=== PATIENT | male | born 1970 | race Caucasian/White ===

== ENCOUNTER 2023-03-19 08:03 | Outpatient (OUT) | payer OTHER, SELFPAY ==
[2023-03-19 08:43] LABS: Estimated Average Glucose 103 mg/dL; Glycohemoglobin A1C 5.2 % (4.5-6.2)
[2023-03-19 09:34] LABS: Free T4 0.95 ng/dL (0.76-1.46)
[2023-03-19 09:41] LABS: Free T3 2.46 pg/mL (2.18-3.98); Thyroid Stimulating Hormone 3.364 uIU/mL (0.358-3.740)
[2023-03-20 14:09] LABS: Thyroglobulin Antibody <1.0 IU/mL (0.0-0.9); Thyroid Peroxidase (TPO) Ab 12 IU/mL (0-34)
== END 2023-03-19 08:04 | disposition home or self-care (01) ==
LOC: LAB 08:10
PROVIDERS: PCP Family Medicine; Visit Provider Family Medicine
DX: R73.9 Hyperglycemia, unspecified (principal); R94.6 Abnormal results of thyroid function studies
CPT/HCPCS: 36415; 83036; 84439; 84443; 84481

== ENCOUNTER 2023-07-22 15:13 | Outpatient (REF) | payer OTHER, SELFPAY ==
[2023-07-22 15:38] LABS: Internal Control Within Normal Limits; Strep A Antigen Screen Negative
== END 2023-07-22 15:14 | disposition home or self-care (01) ==
LOC: LAB 15:13
PROVIDERS: PCP Family Medicine; Visit Provider Family Medicine
DX: J02.9 Acute pharyngitis, unspecified (principal)
CPT/HCPCS: 87070; 87880

== ENCOUNTER 2024-01-06 07:09 | Outpatient (OUT) | payer OTHER, SELFPAY ==
--- OUTSIDE RECORDS SUMMARY | 2024-01-06 07:12 | XMS_ITS | CCD ---
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 Name Role Phone Adela Fulton Unavailable DONALDO, DR CHAPMAN Admitting Unavailable DONALDO, DR CHAPMAN Attending Unavailable DONALDO, DR CHAPMAN Primary Care Unavailable DONALDO, DR CHAPMAN Consulting Unavailable DONALDO, DR CHAPMAN Admitting Unavailable DONALDO, DR CHAPMAN Attending Unavailable DONALDO, DR CHAPMAN Primary Care Unavailable DONALDO, DR CHAPMAN Consulting Unavailable DONALDO, ADELA Tapia Referring Unavailable MELANIE PATEL Attending Unavailable Allergies Allergy Classification Reported Allergen(s) Allergy Type Date of Onset Reaction(s) Facility (8 sources) Amoxicillin / Clavulanate Drug Allergy rash/diarrhea [facility] Other (11 sources) Seasonal allergy Propensity to adverse reactions 4 Unknown, Unknown Reaction [facility] (2 sources) Amoxicillin / Clavulanate Drug Allergy rash/diarrhea [facility] Other (1 source) Amoxicillin Drug Allergy 4 rash/diarrhea [facility] (1 source) Clavulanate Drug Allergy 4 rash/diarrhea [facility] Medications Current Medications Medication Drug Class(es) Dates Sig (Normalized) Sig (Original) amLODIPine 5 mg oral tablet (11 sources) Dihydropyridine Calcium Channel Jose Alfredo Start: 09-27-2023 take 1 tablet by mouth once daily Amlodipine Active 1 TAB PO Daily September 27, 2023 12:00am [employer] tablet Orally Once a day; Note: Source Status: Taking; Refills: 3; Qty: 90 Tablet; Provider: Max Sanchez Start: 12-19-2020 take 1 tablet by jose th every twenty-four hours Norvasc 5 MG 1 tablet Orally Once a day for 30 day(s) December, Active losartan potassium 25 mg oral tablet (11 sources) Angiotensin 2 Receptor Jose Alfredo Start: 09-27-2023 take 1 tablet by mouth once daily Losartan Active 1 TAB PO Daily September 27, 2023 12:00am [employer] tablet Orally Once a day; Note: Source Status: Taking; Refills: 3; Qty: 90 Tablet; Provider: Donaldo Tapia Start: 03-20-2021 take 1 tablet by jose th every twenty-four hours Losartan Potassium 25 MG 1 tablet Orally Once a day for 90 days Mar, Active Multivitamin Gummies Adult - (10 sources) Multivitamin Gum mies Adult - Orally Active Multivitamin preparation (1 source) Start: 09-27-2023 take 1 tablet by mouth once daily Multivitamin Active 1 TAB PO Daily September 27, 2023 12:00am Completed/Discontinued Medications Medication Drug Class(es) Dates Sig (Normalized) Sig (Original) azithromycin 250 mg oral tablet (3 sources) Macrolide Antimicrobial Start: 07-23-2023 Azithromycin 250 MG 2 tablets on day 1 Orally then take 1 tablet daily on days 2-5 for 5 days Jul, Not-Taking/PRN Problems Active Problems Problem Classification Problem Date Documented Da te Episodic/Chronic Disorders of lipid metabolism (10 sources) Hyperlipidemia; Translations: [Hyperlipidemia, unspecified] Chronic Esophageal disorders (10 sources) Acid reflux; Translations: [Gastro-esophageal reflux disease without esophagitis] Chronic Genitourinary symptoms and ill-defined conditions (10 sources) Nocturia; Translations: [Nocturia] Episodic Immunizations and screening for infectious disease (1 source) Contact with and (suspected) exposure to other viral communicable diseases; Translations: [Contact with or exposure to other viral diseases] 09-27-2023 Episodic Other non-traumatic joint disorders (10 sources) Shoulder joint pain; Translations: [Pain in right shoulder] Episodic Other screening for suspected conditions (not mental disorders or infectious disease) (10 sources) Raised prostate specific antigen; Translations: [Elevated prostate specific antigen [PSA]] Episodic Other upper respiratory infections (3 sources) Recurrent sinusitis; Translations: [Chronic sinusitis, unspecified] Chronic Other upper respiratory infections (2 sources) Acute pharyngitis, unspecified; Translations: [Sore throat symptom] Episodic Past or Other Problems Problem Classification Problem Date Documented Da te Episodic/Chronic Other aftercare (1 source) 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 watermaster (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 therapy Onset: 12-24-2021 Resolved: 12-24-2021 Episodic Other circulatory disease (2 sources) Elevated blood-pressure reading, without diagnosis of hypertension Onset: 12-24-2021 Resolved: 04-03-2022 Episodic Unclassified (1 source) Lumbar pain M54.50 Onset: 12-24-2021 Resolved: 12-24-2021 Viral infection (1 source) COVID-19 Results Test Name Value Interpretation Reference Range Facility No Panel InformationOrdered By: Iliana Galo on 09-27-2023 COVID/Influenza Antigen (POC) [facility] Quick Strep (POC) [facility] CT SINUS WOon 08-21-2023 CT SINUS WO EXAM: CT SINUS WO DATE: 08/21/2023 10:35 AM CLINICAL HISTORY: Chronis Sinusitis. COMPARISON: None available. TECHNIQUE: Multiple images axial images were obtained without contrast administration. 3-D sagittal and coronal reconstructions were performed. All CT scans at this facility use dose modulation, iterative reconstruction, and/or weight based dosing when appropriate to reduce radiation dose to as low as reasonably achievable. FINDINGS: The visualized intracranial portions are within normal limits. The orbits demonstrate no intra or extraconal lesions, the globes are intact. There is no fracture or subluxation. There are no lytic or sclerotic bone lesions. The frontal sinuses are well aerated. The ethmoid sinuses are within normal limits. The sphenoid sinuses are unremarkable. The maxillary sinuses are intact. The right ostiomeatal complex is unremarkable. There is narrowing of the left ostiomeatal complex. There is severe deviation the nasal septum towards the left. The soft tissues are within normal limits. IMPRESSION: The paranasal sinuses are aerated. There is severe deviation of the nasal septum towards the left. ELECTRONICALLY SIGNED BY: Pradip Mayorga MD Normal Not Available CBC AUTO DIFFon 12-21-2022 BASO # 0.1 103/ul Normal 0.0-0.1 [facility] Comment on above: Performed By: #### C BC #### [facility] [address] [address] [address] Nely Bernal Basophils/100 WBC (Bld) 1.1 % Normal 0.2-2.0 [facility] Comment on above: Performed By: #### C BC #### [facility] [address] [place] [address] Dr. Nely Bernal EO # 0.3 103/ul Normal 0.0-0.7 [facility] Comment on above: Performed By: #### C BC #### [facility] [address] [place] [address] Dr. Nely Bernal Eosinophils/100 WBC (Bld) 5.1 % Normal 0.9-7.0 [facility] Comment on above: Performed By: #### C BC #### [facility] [address] [place] [address] Dr. Nely Bernal Erythrocyte distribution width (RBC) [Ratio] 12.1 % Normal 11.0-15.0 [facility] Comment on above: Performed By: #### C BC #### [facility] [address] [place] [address] Dr. Nely Bernal Hematocrit (Bld) [Volume fraction] 45.9 % Normal 42.0-54.0 [facility] Comment on above: Performed By: #### C BC #### [facility] [address] [place] [address] Dr. Nely Bernal Hemoglobin (Bld) [Mass/Vol] 15.7 g/dL Normal 14.0-18.0 [facility] Comment on above: Performed By: #### C BC #### [facility] [address] [place] [address] Dr. Nely Bernal IG # 0.01 10e3/ul Normal 0.00-0.03 [facility] Comment on above: Performed By: #### C BC #### [facility] [address] [place] [address] Dr. Nely Bernal IG % 0.2 % Normal 0.0-0.5 [facility] Comment on above: Performed By: #### C BC #### [facility] [address] [place] [address] Dr. Nely Bernal LYMPH # 1.9 103/ul Normal 1.2-3.8 [facility] Comment on above: Performed By: #### C BC #### [facility] [address] [place] [address] Dr. Nely Bernal Lymphocytes/100 WBC (Bld) 30.6 % Normal 20.5-60.0 [facility] Comment on above: Performed By: #### C BC #### [facility] [address] [place] [address] Dr. Nely Bernal MANUAL DIFF REQ NO Normal [facility] Comment on above: Performed By: #### C BC #### [facility] [address] [place] [address] Dr. Nely Bernal MCH (RBC) [Entitic mass] 30.9 pg Normal 25.9-34.0 [facility] Comment on above: Performed By: #### C BC #### [facility] [address] [place] [address] Dr. Nely Bernal MCHC (RBC) [Mass/Vol] 34.2 g/dL Normal 29.9-35.2 [facility] Comment on above: Performed By: #### C BC #### [facility] [address] [place] [address] Dr. Nely Bernal MCV (RBC) [Entitic vol] 90.4 fL Normal 80.0-94.0 [facility] Comment on above: Performed By: #### C BC #### [facility] [address] [place] [address] Dr. Nely Bernal MONO # 0.6 103/ul Normal 0.3-0.8 [facility] Comment on above: Performed By: #### C BC #### [facility] [address] [place] [address] Dr. Nely Bernal Monocytes/100 WBC (Bld) 8.8 % Normal 1.7-12.0 [facility] Comment on above: Performed By: #### C BC #### [facility] [address] [place] [address] Dr. Nely Bernal NEUT # 3.4 103/ul Normal 1.4-6.5 [facility] Comment on above: Performed By: #### C BC #### [facility] [address] [address] [address] Nely Bernal Neutrophils/100 WBC (Bld) 54.2 % Normal 43.0-75.0 [facility] Comment on above: Performed By: #### C BC #### [facility] [address] [address] [address] Nely Bernal Platelet mean volume (Bld) [Entitic vol] 9.7 fL Normal 9.5-13.5 [facility] Comment on above: Performed By: #### C BC #### [facility] [address] [place] [address] Dr. Nely Bernal PLT 194 103/ul Normal 150-450 [facility] Comment on above: Performed By: #### C BC #### [facility] [address] [place] [address] Dr. Nely Bernal RBC 5.08 106/ul Normal 4.70-6.10 [facility] Comment on above: Performed By: #### C BC #### [facility] [address] [place] [address] Dr. Nely Bernal WBC 6.3 103/ul Normal 4.0-11.0 [facility] Comment on above: Performed By: #### C BC #### [facility] [address] [place] [address] Dr. Nely Bernal LIPID PROFILEon 12-21-2022 CHOL-HDL RATIO NORM SEE BELOW Normal [facility] Comment on above: Result Comment: 3.3 - 4.4 LOW RISK 4.4 - 7.1 AVERAGE RISK 7.1 - 11.0 MODERATE RISK >11.0 HIGH RISK Performed By: #### T JOSE ANGEL, LIPID, CMP #### [facility] [address] [place] [address] Dr. Nely Bernal Cholesterol [Mass/Vol] 107 mg/dL Normal <=200 [facility] Comment on above: Performed By: #### T SH, LIPID, CMP #### [facility] [address] [place] [address] Dr. Nely Bernal Cholesterol in HDL [Mass/Vol] 36 mg/dL Critically low 40-60 [facility] Comment on above: Performed By: #### T SH, LIPID, CMP #### [facility] [address] [address] [address] Nely Bernal Cholesterol in LDL [Mass/Vol] 37.2 mg/dL Normal [facility] Comment on above: Performed By: #### T SH, LIPID, CMP #### [facility] [address] [address] [address] Nely Bernal Cholesterol.total/Carmel sterol in HDL [Mass ratio] 3.0 {ratio} Normal [facility] Comment on above: Performed By: #### T SH, LIPID, CMP #### [facility] [address] [place] [address] Dr. Nely Bernal HDL NORMAL > or = 60 mg/dl - LOW CARDIOVASCULAR RISK <40 mg/dl - HIGH CARDIOVASCULAR RISK Normal [facility] Comment on above: Performed By: #### T JOSE ANGEL, LIPID, CMP #### [facility] [address] [place] [address] Dr. Nely Bernal LDL CALC NORMAL SEE BELOW Normal [facility] Comment on above: Result Comment: <100 mg/dl OPTIMAL 100 - 129 mg/dl NEAR OR ABOVE OPTIMAL 130 - 159 mg/dl BORDERLINE HIGH 160 - 189 mg/dl HIGH >190 mg/dl VERY HIGH Performed By: #### T JOSE ANGEL, LIPID, CMP #### [facility] [address] [place] [address] Dr. Nely Bernal Triglyceride [Mass/Vol] 169 mg/dL Critically high <=[address] [facility] Comment on above: Performed By: #### T SH, LIPID, CMP #### [facility] [address] [place] [address] Dr. Nely Bernal VLDL CALC 33.8 mg/dL Normal [facility] Comment on above: Performed By: #### T SH, LIPID, CMP #### [facility] [address] [place] [address] Dr. Nely Bernal PROF 14(COMP METB)on 023 Albumin [Mass/Vol] 4.0 g/dL Normal 3.4-5.0 [facility] Comment on above: Performed By: #### L IPID, TSH, CMP #### [facility] [address] [place] [address] Dr. Nely Bernal Albumin/Globulin [Mass ratio] 1.0 {ratio} Normal [facility] Comment on above: Performed By: #### L IPID, TSH, CMP #### [facility] [address] [address] [address] Nely Bernal ALP [Catalytic activity/Vol] 67 U/L Normal 46-116 [facility] Comment on above: Performed By: #### L IPID, TSH, CMP #### [facility] [address] [place] [address] Dr. Nely Bernal ALT [Catalytic activity/Vol] 49 U/L Normal 16-63 [facility] Comment on above: Performed By: #### L IPID, TSH, CMP #### [facility] [address] [place] [address] Dr. Nely Bernal Anion gap [Moles/Vol] 10.6 mmol/L Normal [facility] Comment on above: Performed By: #### L IPID, TSH, CMP #### [facility] [address] [place] [address] Dr. Nely Bernal AST [Catalytic activity/Vol] 11 U/L Critically low 15-37 [facility] Comment on above: Performed By: #### L IPID, TSH, CMP #### [facility] [address] [place] [address] Dr. Nely Bernal Bilirubin [Mass/Vol] 0.4 mg/dL Normal 0.2-1.0 [facility] Comment on above: Performed By: #### L IPID, TSH, CMP #### [facility] [address] [place] [address] Dr. Nely Bernal Calcium [Mass/Vol] 9.1 mg/dL Normal 8.5-10.1 [facility] Comment on above: Performed By: #### L IPID, TSH, CMP #### [facility] [address] [address] [address] Nely Bernal Chloride [Moles/Vol] 107 mmol/L Normal 98-107 [facility] Comment on above: Performed By: #### L IPID, TSH, CMP #### [facility] [address] [place] [address] Dr. Nely Bernal CO2 [Moles/Vol] 31.4 mmol/L Normal 21.0-32.0 [facility] Comment on above: Performed By: #### L IPID, TSH, CMP #### [facility] [address] [place] [address] Dr. Nely Bernal Creatinine [Mass/Vol] 1.04 mg/dL Normal 0.70-1.30 [facility] Comment on above: Performed By: #### L IPID, TSH, CMP #### [facility] [address] [place] [address] Dr. Nely Bernal EGFR-AF NIUEAN >60 Normal >=60 [facility] Comment on above: Performed By: #### L IPID, TSH, CMP #### [facility] [address] [place] [address] Dr. Nely Bernal EGFR-NON AF NIUEAN >60 Normal >=60 [facility] Comment on above: Performed By: #### L IPID, TSH, CMP #### [facility] [address] [place] [address] Dr. Nely Bernal Globulin (S) [Mass/Vol] 4.0 g/dL Normal [facility] Comment on above: Performed By: #### L IPID, TSH, CMP #### [facility] [address] [place] [address] Dr. Nely Bernal Glucose [Mass/Vol] 107 mg/dL Critically high 74-106 [facility] Comment on above: Performed By: #### L IPID, TSH, CMP #### [facility] [address] [place] [address] Dr. Nely Bernal Potassium [Moles/Vol] 4.0 mmol/L Normal 3.5-5.1 [facility] Comment on above: Performed By: #### L IPID, TSH, CMP #### [facility] [address] [address] [address] Nely Bernal Protein [Mass/Vol] 8.0 g/dL Normal 6.4-8.2 [facility] Comment on above: Performed By: #### L IPID, TSH, CMP #### [facility] [address] [place] [address] Dr. Nely Bernal Sodium [Moles/Vol] 145 mmol/L Normal 136-145 [facility] Comment on above: Performed By: #### L IPID, TSH, CMP #### [facility] [address] [place] [address] Dr. Nely Bernal Urea nitrogen [Mass/Vol] 17.0 mg/dL Normal 7.0-18.0 [facility] Comment on above: Performed By: #### L IPID, TSH, CMP #### [facility] [address] [place] [address] Dr. Nely Bernal Urea nitrogen/Creatinine [Mass ratio] 16.3 mg/mg Normal [facility] Comment on above: Performed By: #### L IPID, TSH, CMP #### [facility] [address] [place] [address] Dr. Nely Bernal TSHon 12-21-2022 TSH 4.412 uIU/mL Critically high 0.358-3.740 [facility] Comment on above: Performed By: #### T SH, LIPID, CMP #### [facility] [address] [place] [address] Dr. Nely Bernal UA RANDOM W/MICROSCOPICon BACTERIA NONE SEEN Normal NONE SEEN [facility] Comment on above: Performed By: #### U AMIC #### [facility] [address] [place] [address] Dr. Nely Bernal Bilirubin Ql (U) Negative Normal NEGATIVE [facility] Comment on above: Performed By: #### U AMIC #### [facility] [address] [place] [address] Dr. Nely Bernal CAST NONE SEEN Normal NONE SEEN [facility] Comment on above: Performed By: #### U AMIC #### [facility] [address] [address] [address] Nely Bernal Clarity (U) CLEAR Normal CLEAR [facility] Comment on above: Performed By: #### U AMIC #### [facility] [address] [address] [address] Nely Bernal Color (U) LT. YELLOW Normal YELLOW [facility] Comment on above: Performed By: #### U AMIC #### [facility] [address] [address] [address] Nely Bernal Crystals LM Nom (Urine sed) NONE SEEN Normal NONE SEEN [facility] Comment on above: Performed By: #### U AMIC #### [facility] [address] [place] [address] Dr. Nely Bernal Epithelial cells LM Ql (Urine sed) NONE SEEN Normal NONE SEEN /RARE [facility] Comment on above: Performed By: #### U AMIC #### [facility] [address] [address] [address] Nely Bernal Glucose Ql (U) Negative Normal NEGATIVE [facility] Comment on above: Performed By: #### U AMIC #### [facility] [address] [place] [address] Dr. Nely Bernal Hemoglobin Ql (U) Negative Normal NEGATIVE [facility] Comment on above: Performed By: #### U AMIC #### [facility] [address] [address] [address] Nely Bernal Ketones Ql (U) Negative Normal NEGATIVE [facility] Comment on above: Performed By: #### U AMIC #### [facility] [address] [place] [address] Dr. Nely Bernal LEUKOCYTES Negative Normal NEGATIVE [facility] Comment on above: Performed By: #### U AMIC #### [facility] [address] [place] [address] Dr. Nely Bernal MUCOUS NONE SEEN Normal NONE SEEN [facility] Comment on above: Performed By: #### U AMIC #### [facility] [address] [place] [address] Dr. Nely Bernal Nitrite Ql (U) Negative Normal NEGATIVE [facility] Comment on above: Performed By: #### U AMIC #### [facility] [address] [place] [address] Dr. Nely Bernal pH (U) 6.5 [pH] Normal 5-9 [facility] Comment on above: Performed By: #### U AMIC #### [facility] [address] [place] [address] Dr. Nely Bernal RBC 0-2 Normal 0-2 [facility] Comment on above: Performed By: #### U AMIC #### [facility] [address] [place] [address] Dr. Nely Bernal SPEC GRAVITY 1.010 Normal 1.005-<=1.025 [facility] Comment on above: Performed By: #### U AMIC #### [facility] [address] [place] [address] Dr. Nely Bernal UA PROTEIN Negative Normal NEGATIVE/ TRACE [facility] Comment on above: Performed By: #### U AMIC #### [facility] [address] [place] [address] Dr. Nely Bernal Urobilinogen Qn (U) 0.2 {Wendy'U}/dL Normal 0.2 - 1. 0 [facility] Comment on above: Performed By: #### U AMIC #### [facility] [address] [place] [address] Dr. Nely Bernal WBC NONE SEEN Normal NONE SEEN [facility] Comment on above: Performed By: #### U AMIC #### [facility] [address] [place] [address] Dr. Nely Bernal CBC AUTO DIFFon 01-08-2022 BASO # 0.1 103/ul Normal 0.0-0.1 [facility] Comment on above: Performed By: #### C BC #### [facility] [address] [place] [address] Dr. Nely Bernal Basophils/100 WBC (Bld) 1.0 % Normal 0.2-2.0 [facility] Comment on above: Performed By: #### C BC #### [facility] [address] [place] [address] Dr. Nely Bernal EO # 0.2 103/ul Normal 0.0-0.7 [facility] Comment on above: Performed By: #### C BC #### [facility] [address] [place] [address] Dr. Nely Bernal Eosinophils/100 WBC (Bld) 3.7 % Normal 0.9-7.0 [facility] Comment on above: Performed By: #### C BC #### [facility] [facility] [address] [place] [address] Dr. Nely Bernal Erythrocyte distribution width (RBC) [Ratio] 12.1 % Normal 11.0-15.0 [facility] Comment on above: Performed By: #### C BC #### [facility] [address] [place] [address] Dr. Nely Bernal Hematocrit (Bld) [Volume fraction] 44.7 % Normal 42.0-54.0 [facility] Comment on above: Performed By: #### C BC #### [facility] [address] [place] [address] Dr. Nely Bernal Hemoglobin (Bld) [Mass/Vol] 15.6 g/dL Normal 14.0-18.0 [facility] Comment on above: Performed By: #### C BC #### [facility] [address] [place] [address] Dr. Nely Bernal IG # 0.01 10e3/ul Normal 0.00-0.03 [facility] Comment on above: Performed By: #### C BC #### [facility] [address] [place] [address] Dr. Nely Bernal IG % 0.2 % Normal 0.0-0.[address] [facility] Comment on above: Performed By: #### C BC #### [facility] [address] [place] [address] Dr. Nely Bernal LYMPH # 1.8 103/ul Normal 1.2-3.[address] [facility] Comment on above: Performed By: #### C BC #### [facility] [address] [place] [address] Dr. Nely Bernal Lymphocytes/100 WBC (Bld) 27.9 % Normal 20.5-60.0 [facility] Comment on above: Performed By: #### C BC #### [facility] [address] [place] [address] Dr. Nely Bernal MANUAL DIFF REQ NO Normal [facility] Comment on above: Performed By: #### C BC #### [facility] [address] [place] [address] Dr. Nely Bernal MCH (RBC) [Entitic mass] 31.3 pg Normal 25.9-34.0 [facility] Comment on above: Performed By: #### C BC #### [facility] [address] [place] [address] Dr. Nely Bernal MCHC (RBC) [Mass/Vol] 34.9 g/dL Normal 29.9-35.2 [facility] Comment on above: Performed By: #### C BC #### [facility] [address] [place] [address] Dr. Nely Bernal MCV (RBC) [Entitic vol] 89.6 fL Normal 80.0-94.0 [facility] Comment on above: Performed By: #### C BC #### [facility] [address] [place] [address] Dr. Nely Bernal MONO # 0.5 103/ul Normal 0.3-0.8 [facility] Comment on above: Performed By: #### C BC #### [facility] [address] [place] [address] Dr. Nely Bernal Monocytes/100 WBC (Bld) 8.6 % Normal 1.7-12.0 [facility] Comment on above: Performed By: #### C BC #### [facility] [address] [place] [address] Dr. Nely Bernal NEUT # 3.7 103/ul Normal 1.4-6.5 [facility] Comment on above: Performed By: #### C BC #### [facility] [address] [address] [address] Nely Bernal Neutrophils/100 WBC (Bld) 58.6 % Normal 43.0-75.0 [facility] Comment on above: Performed By: #### C BC #### [facility] [address] [address] [address] Nely Bernal Platelet mean volume (Bld) [Entitic vol] 9.8 fL Normal 9.5-13.5 [facility] Comment on above: Performed By: #### C BC #### [facility] [address] [address] [address] Nely Bernal PLT 205 103/ul Normal 150-450 [facility] Comment on above: Performed By: #### C BC #### [facility] [address] [place] [address] Dr. Nely Bernal RBC 4.99 106/ul Normal 4.70-6.10 [facility] Comment on above: Performed By: #### C BC #### [facility] [address] [address] [address] Nely Bernal WBC 6.3 103/ul Normal 4.0-11.0 [facility] Comment on above: Performed By: #### C BC #### [facility] [address] [place] [address] Dr. Nely Bernal LIPID PROFILEon 01-08-2022 CHOL-HDL RATIO NORM SEE BELOW Normal [facility] Comment on above: Result Comment: 3.3 - 4.4 LOW RISK 4.4 - 7.1 AVERAGE RISK 7.1 - 11.0 MODERATE RISK >11.0 HIGH RISK Performed By: #### T SH, LIPID, CMP #### [facility] [address] [address] [address] Nely Bernal Cholesterol [Mass/Vol] 111 mg/dL Normal <=200 Th [facility] Comment on above: Performed By: #### T SH, LIPID, CMP #### [facility] [address] [address] [address] Nely Bernal Cholesterol in HDL [Mass/Vol] 38 mg/dL Critically low 40-60 [facility] Comment on above: Performed By: #### T SH, LIPID, CMP #### [facility] [address] [address] [address] Nely Bernal Cholesterol in LDL [Mass/Vol] 43.8 mg/dL Normal [facility] Comment on above: Performed By: #### T SH, LIPID, CMP #### [facility] [address] [address] [address] Nely Bernal Cholesterol.total/Carmel sterol in HDL [Mass ratio] 2.9 {ratio} Normal [facility] Comment on above: Performed By: #### T SH, LIPID, CMP #### [facility] [address] [address] [address] Nely Bernal HDL NORMAL > or = 60 mg/dl - LOW CARDIOVASCULAR RISK <40 mg/dl - HIGH CARDIOVASCULAR RISK Normal [facility] Comment on above: Performed By: #### T SH, LIPID, CMP #### [facility] [address] [place] [address] Dr. Nely Bernal LDL CALC NORMAL SEE BELOW Normal [facility] Comment on above: Result Comment: <100 mg/dl OPTIMAL 100 - 129 mg/dl NEAR OR ABOVE OPTIMAL 130 - 159 mg/dl BORDERLINE HIGH 160 - 189 mg/dl HIGH >190 mg/dl VERY HIGH Performed By: #### T SH, LIPID, CMP #### [facility] [address] [place] [address] Dr. Nely Bernal Triglyceride [Mass/Vol] 146 mg/dL Normal <=150 T [facility] Comment on above: Performed By: #### T SH, LIPID, CMP #### [facility] [address] [place] [address] Dr. Nely Bernal VLDL CALC 29.2 mg/dL Normal [facility] Comment on above: Performed By: #### T SH, LIPID, CMP #### [facility] [address] [place] [address] Dr. Nely Bernal PROF 14(COMP METB)on 022 Albumin [Mass/Vol] 3.9 g/dL Normal 3.4-5.0 [facility] Comment on above: Performed By: #### T SH, LIPID, CMP #### [facility] [address] [address] [address] Nely Bernal Albumin/Globulin [Mass ratio] 1.2 {ratio} Normal [facility] Comment on above: Performed By: #### T SH, LIPID, CMP #### [facility] [address] [address] [address] Nely Bernal ALP [Catalytic activity/Vol] 56 U/L Normal 46-116 [facility] Comment on above: Performed By: #### T SH, LIPID, CMP #### [facility] [address] [address] [address] Nely Bernal ALT [Catalytic activity/Vol] 45 U/L Normal 16-63 [facility] Comment on above: Performed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
[2024-01-06 07:44] LABS: Bilirubin Urine NEGATIVE (NEGATIVE); Blood Urine NEGATIVE (NEGATIVE); Clarity Urine CLEAR (CLEAR); Color Urine LT. YELLOW (YELLOW); Glucose Urine UA NEGATIVE (NEGATIVE); Ketones Urine NEGATIVE (NEGATIVE); Leukocyte Esterase Urine NEGATIVE (NEGATIVE); Nitrite Urine NEGATIVE (NEGATIVE); Protein Urine NEGATIVE (NEG/TRACE); Specific Gravity Urine 1.015 (1.005-1.025); Urobilinogen Urine 0.2 EU/dL (0.2-1.0); pH Urine 7.5 (5.0-9.0)
[2024-01-06 07:47] LABS: Basophils Absolute Auto 0.1 10^3/uL (0.0-0.1); Basophils Percent Auto 1.1 % (0.2-2.0); Eosinophils Absolute Auto 0.3 10^3/uL (0.0-0.7); Eosinophils Percent Auto 5.8 % (0.9-7.0); Hematocrit 43.4 % (42.0-54.0); Hemoglobin 14.7 g/dL (14.0-18.0); Immature Granulocytes Abs Auto 0.01 10^3/uL (0.00-0.03); Immature Granulocytes Pct Auto 0.2 % (0.0-0.5); Lymphocytes Absolute Auto 1.7 10^3/uL (1.2-3.8); Lymphocytes Percent Auto 29.6 % (20.5-60.0); Mean Corpuscular HGB Conc 33.9 g/dL (29.9-35.2); Mean Corpuscular Hemoglobin 30.9 pg (25.9-34.0); Mean Corpuscular Volume 91.4 fL (80.0-94.0); Mean Platelet Volume 9.8 fL (9.5-13.5); Monocytes Absolute Auto 0.5 10^3/uL (0.3-0.8); Monocytes Percent Auto 9.5 % (1.7-12.0); Neutrophils Absolute Auto 3.1 10^3/uL (1.4-6.5); Neutrophils Percent Auto 53.8 % (43.0-75.0); Platelet Count 187 10^3/uL (150-450); Red Blood Count 4.75 10^6/uL (4.70-6.10); White Blood Count 5.7 10^3/uL (4.0-11.0)
[2024-01-06 09:07] LABS: Alanine Aminotransferase 51 U/L (16-63); Albumin Globulin Ratio 1.1; Albumin Level 3.6 g/dL (3.4-5.0); Alkaline Phosphatase 66 U/L (46-116); Anion Gap 9.6; Aspartate Amino Transferase 16 U/L (15-37); BUN Creatinine Ratio 15.6; Bilirubin Total 0.6 mg/dL (0.2-1.0); Calcium 8.3 mg/dL (8.5-10.1); Carbon Dioxide 30.2 mmol/L (21.0-32.0); Chloride 105 mmol/L (98-107); Chol HDL Ratio 2.9; Cholesterol 106 mg/dL (<=200); Estimated GFR (African America >60 (>=60); Estimated GFR (Non-African Ame >60 (>=60); Globulin 3.4 g/dL; Glucose 101 mg/dL (74-106); HDL Cholesterol 37 mg/dL (40-60); Potassium 3.8 mmol/L (3.5-5.1); Sodium 141 mmol/L (136-145); Triglycerides 137 mg/dL (<=150); VLDL CHOLESTEROL 27.4 mg/dL
[2024-01-06 09:09] LABS: Prostate Specific Antigen Dx 1.72 ng/mL (<=4.00)
[2024-01-06 09:25] LABS: Bacteria Urine TRACE #/HPF (NONE SEEN); Cast Seen? NONE SEEN #/LPF (NONE SEEN); Crystals Seen? None Seen #/HPF (None Seen); Mucus Urine NONE SEEN (NONE SEEN); RBC Urine 0-2 #/HPF (0-2); Squamous Epithelial Cell Urine NONE SEEN #/LPF (NONE/RARE); WBC Urine 0-2 #/HPF (NONE SEEN)
== END 2024-01-06 07:10 | disposition home or self-care (01) ==
LOC: LAB 07:10
PROVIDERS: PCP Family Medicine; Visit Provider Family Medicine
DX: Z00.00 Encounter for general adult medical examination without abnormal findings (principal)
CPT/HCPCS: 36415; 80053; 80061; 81001; 84153; 84443; 85025

== ENCOUNTER 2024-12-23 06:54 | Outpatient (OUT) | payer OTHER, SELFPAY ==
--- OUTSIDE RECORDS SUMMARY | 2024-12-23 06:58 | XMS_ITS | CCD ---
Author Organization [facility] Inform ion Partnership [facility] Care Team Providers Care Mine Inspector Name Role Phone Adela Fulton Unavailable DONALDO, DR CHAPMAN Admitting Unavailable DONALDO, DR CHAPMAN Attending Unavailable DONALDO, DR CHAPMAN Primary Care Unavailable DONALDO, DR CHAPMAN Consulting Unavailable DONALDO, DR CHAPMAN Admitting Unavailable DONALDO, DR CHAPMAN Attending Unavailable DONALDO, DR CHAPMAN Primary Care Unavailable DONALDO, DR CHAPMAN Consulting Unavailable DONALDO, ADELA Tapia Referring Unavailable MELANIE PATEL Attending Unavailable ROSA ELENA KIMBALL Attending Unavailable Allergies Allergy Classification Reported Allergen(s) Allergy Type Date of Onset Reaction(s) Facility (8 sources) Amoxicillin / Clavulanate Drug Allergy rash/diarrhea [facility] Back& Other (12 sources) Seasonal allergy Propensity to adverse reactions 4 Unknown, Unknown Reaction [facility] (2 sources) Amoxicillin / Clavulanate Drug Allergy rash/diarrhea [facility] Back& Other (2 sources) Amoxicillin Drug Allergy 4 rash/diarrhea [facility] (2 sources) Clavulanate Drug Allergy 4 rash/diarrhea [facility] Medications Current Medications Medication Drug Class(es) Dates Sig (Normalized) Sig (Original) amLODIPine 5 mg oral tablet (13 sources) Dihydropyridine Calcium Channel Jose Alfredo Start: 09-27-2023 End: 01-08-2024 take 5 mg by mouth once daily Amlodipine Active 5 MG PO Daily January 08, 2024 8:45am Start: 12-19-2020 take 1 tablet by jose th every twenty-four hours Norvasc 5 MG 1 tablet Orally Once a day for 30 day(s) December, Active losartan potassium 25 mg oral tablet (13 sources) Angiotensin 2 Receptor Jose Alfredo Start: 09-27-2023 End: 01-08-2024 take 25 mg by mouth once daily Losartan Active 25 MG PO Daily January 08, 2024 8:46am Start: 03-20-2021 take 1 tablet by jose th every twenty-four hours Losartan Potassium 25 MG 1 tablet Orally Once a day for 90 days Mar, Active Multivitamin Gummies Adult - (10 sources) Multivitamin Gum mies Adult - Orally Active Multivitamin preparation (2 sources) Start: 09-27-2023 take 1 tablet by mouth once daily Multivitamin Active 1 TAB PO Daily September 27, 2023 1:00am Start: 09-27-2023 take 1 tablet by jose th once daily Multivitamin Active 1 TAB PO Daily September 27, 2023 12:00am predniSONE 20 mg oral tablet (1 source) Start: 09-27-2023 take 40 mg by mouth once daily Prednisone Active 40 MG PO Daily 10 5 September 27, 2023 1:00am triamcinolone acetonide 0.055 mg/actuat metered dose nasal spray (1 source) Corticosteroid Start: 09-27-2023 take 1 spray(s) nasal route once daily Triamcinolone Acetonide (Nasacort Allergy) 55 mcg aerosol,spray Active 2 SPRAY INTRANASAL Daily 16.9 September 27, 2023 1:00am administer into each nostril Completed/Discontinued Medications Medication Drug Class(es) Dates Sig (Normalized) Sig (Original) azithromycin 250 mg oral tablet (3 sources) Macrolide Antimicrobial Start: 07-23-2023 Azithromycin 250 MG 2 tablets on day 1 Orally then take 1 tablet daily on days 2-5 for 5 days 13 Jul, 2023 Not-Taking/PRN doxycycline hyclate 100 mg oral capsule (1 source) Tetracycline-class Drug Start: 09-27-2023 End: 01-08-2024 take 100 mg by mouth twice daily Doxycycline Hyclate Discontinued 100 MG PO Twice daily 20 10 September 27, 2023 1:00am January 08, 2024 9:39am Problems Active Problems Problem Classification Problem Date Documented Da te Episodic/Chronic Diabetes mellitus without complication (2 sources) Hyperglycemia; Translations: [Hyperglycemia, unspecified] 01-08-2024 Episodic Disorders of lipid metabolism (12 sources) Hyperlipidemia; Translations: [Hyperlipidemia, unspecified] 01-08-2024 Chronic Esophageal disorders (10 sources) Acid reflux; Translations: [Gastro-esophageal reflux disease without esophagitis] Chronic Genitourinary symptoms and ill-defined conditions (10 sources) Nocturia; Translations: [Nocturia] Episodic Immunizations and screening for infectious disease (2 sources) Contact with and (suspected) exposure to other viral communicable diseases; Translations: [Contact with or exposure to other viral diseases] 09-27-2023 Episodic Other circulatory disease (3 sources) Elevated blood-pressure reading, without diagnosis of hypertension; Translations: [Elevated blood pressure reading without diagnosis of hypertension] Onset: 12-24-2021 Resolved: 04-03-2022 Episodic Other circulatory disease (1 source) Elevated blood pressure; Translations: [Elevated blood-pressure reading, without diagnosis of hypertension] 01-08-2024 Episodic Other non-traumatic joint disorders (10 sources) Shoulder joint pain; Translations: [Pain in right shoulder] Episodic Other nutritional; endocrine; and metabolic disorders (1 source) Hypocalcemia; Translations: [Hypocalcemia] 01-08-2024 Chronic Other nutritional; endocrine; and metabolic disorders (1 source) Hypocalcemia; Translations: [Hypocalcemia] 01-08-2024 Chronic Other screening for suspected conditions (not mental disorders or infectious disease) (14 sources) Raised prostate specific antigen; Translations: [Elevated prostate specific antigen [PSA]] 01-08-2024 Episodic Other upper respiratory infections (4 sources) Recurrent sinusitis; Translations: [Chronic sinusitis, unspecified] Chronic Other upper respiratory infections (3 sources) Acute pharyngitis, unspecified; Translations: [Sore throat symptom] Episodic Spondylosis; intervertebral disc disorders; other back problems (2 sources) Low back pain; Translations: [Lumbar back pain] 01-08-2024 Episodic Past or Other Problems Problem Classification Problem Date Documented Da te Episodic/Chronic Other aftercare (1 source) Other chcf (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 therapy Onset: 12-24-2021 Resolved: 12-24-2021 Episodic Unclassified (1 source) Lumbar pain M54.50 Onset: 12-24-2021 Resolved: 12-24-2021 Viral infection (1 source) COVID-19 Results Test Name Value Interpretation Reference Range Facility Basophils Auto (Bld) [#/Vol] on 01-06-2024 Basophils (Bld) [#/Vol] 0.1 10 3/uL 0.0-0.1 [facility] Basophils/100 WBC Auto (Bld) on 01-06-2024 Basophils/100 WBC (Bld) 1.1 % 0.2-2.0 [facility] Cholesterol in LDL Calc [Mas s/Vol]on 01-06-2024 Cholesterol in LDL [Mass/Vol] 42.0 mg/dL [facility] Comment on above: <100 mg/dl [id number] 0-129 mg/dl NEAR OR ABOVE [id number] mg/dl BORDERLINE [id number] mg/dl HIGH>190 mg/dl VERY HIGH Cholesterol in VLDL Calc [Ma ss/Vol]on 01-06-2024 Cholesterol in VLDL [Mass/Vol] 27.4 mg/dL [facility] Eosinophils/100 WBC Auto (Bl d)on 01-06-2024 Eosinophils/100 WBC (Bld) 5.8 % 0.9-7.0 [facility] Erythrocyte distribution wid th Auto (RBC) [Ratio]on 01-06-2024 Erythrocyte distribution width (RBC) [Ratio] 12.0 % 11.0-15.0 [facility] Estimated glomerular filtrat ion rate (GFR) non- Americanon 01-06-2024 GFR/1.73 sq M.predicted among non-blacks MDRD (S/P/Bld) [Vol rate/Area] mL/min/{1.73_m2} >=60 [facility] Globulin Calc (S) [Mass/Vol] on 01-06-2024 Globulin (S) [Mass/Vol] 3.4 g/dL [facility] Hematocrit Auto (Bld) [Volum e fraction]on 01-06-2024 Hematocrit (Bld) [Volume fraction] 43.4 % 42.0-54.0 [facility] Hemoglobin [Mass/volume] in Bloodon 01-06-2024 Hemoglobin (Bld) [Mass/Vol] 14.7 g/dL 14.0-18.0 [facility] Laboratory - Chemistry and C hemistry - challengeon 01-06-2024 Albumin [Mass/Vol] 3.6 g/dL 3.4-5.0 [facility] ALP [Catalytic activity/Vol] 66 U/L 46-116 [facility] ALT [Catalytic activity/Vol] 51 U/L 16-63 [facility] AST [Catalytic activity/Vol] 16 U/L 15-37 [facility] Bilirubin [Mass/Vol] 0.6 mg/dL 0.2-1.0 [facility] Calcium [Mass/Vol] 8.3 mg/dL 8.5-10.1 [facility] Chloride [Moles/Vol] 105 mmol/L 98-107 [facility] Cholesterol [Mass/Vol] 106 mg/dL <=200 [facility] Cholesterol in HDL [Mass/Vol] 37 mg/dL 40-60 [facility] Comment on above: > or =60 mg/dl - LOW CARDIOVASCULAR RISK<40 mg/dl - HIGH CARDIOVASCULAR RISK CO2 [Moles/Vol] 30.2 mmol/L 21.0-32.0 [facility] Creatinine [Mass/Vol] 0.96 mg/dL 0.70-1.30 [facility] GFR/1.73 sq M.predicted MDRD (S/P/Bld) [Vol rate/Area] mL/min/{1.73_m2} >=60 [facility] Glucose [Mass/Vol] 101 mg/dL 74-106 [facility] Potassium [Moles/Vol] 3.8 mmol/L 3.5-5.1 [facility] Protein [Mass/Vol] 7.0 g/dL 6.4-8.2 [facility] Sodium [Moles/Vol] 141 mmol/L 136-145 [facility] Triglyceride [Mass/Vol] 137 mg/dL <=150 [facility] TSH Qn 3.800 m[IU]/L 0.358-3.740 [facility] Urea nitrogen [Mass/Vol] 15.0 mg/dL 7.0-18.0 [facility] Urea nitrogen/Creatinine [Mass ratio] 15.6 mg/mg [facility] Bilirubin Ql (U) Negative NEGATIVE [facility] Glucose (U) [Mass/Vol] Negative NEGATIVE [facility] Ketones Ql (U) Negative NEGATIVE [facility] pH (U) 7.5 [pH] 5.0-9.0 [facility] Specific gravity (U) [Rel density] 1.015 1.005-1.025 [facility] Urobilinogen Qn (U) 0.2 {Wendy'U}/dL 0.2-1.0 [facility] Laboratory - Hematology and Cell countson 01-06-2024 Immature granulocytes/100 WBC (Bld) 0.2 % 0.0-0.5 [facility] Laboratory - Specimen inform ationon 01-06-2024 Appearance (U) CLEAR CLEAR [facility] Color (U) LT. YELLOW YELLOW [facility] Laboratory - Urinalysison Leukocyte esterase Test strip Ql (U) Negative NEGATIVE [facility] Mucus Ql (Urine sed) NONE SEEN NONE SEEN [facility] Nitrite Ql (U) Negative NEGATIVE [facility] Protein Ql (U) Negative NEG/TRACE [facility] Leukocytes [#/volume] correc jim for nucleated erythrocytes in Blood by Automated counon 01-06-2024 WBC corrected for nucl RBC Auto (Bld) [#/Vol] 5.7 10 3/uL 4.0-11.0 [facility] Lymphocytes Auto (Bld) [#/Vo l]on 01-06-2024 Lymphocytes (Bld) [#/Vol] 1.7 10 3/uL 1.2-3.8 [facility] Lymphocytes/100 WBC Auto (Bl d)on 01-06-2024 Lymphocytes/100 WBC (Bld) 29.6 % 20.5-60.0 [facility] MCH Auto (RBC) [Entitic mass ]on 01-06-2024 MCH (RBC) [Entitic mass] 30.9 pg 25.9-34.0 [facility] MCHC Auto (RBC) [Mass/Vol]on 01-06-2024 MCHC (RBC) [Mass/Vol] 33.9 g/dL 29.9-35.2 [facility] MCV Auto (RBC) [Entitic vol] on 01-06-2024 MCV (RBC) [Entitic vol] 91.4 fL 80.0-94.0 [facility] Monocytes Auto (Bld) [#/Vol] on 01-06-2024 Monocytes (Bld) [#/Vol] 0.5 10 3/uL 0.3-0.8 [facility] Monocytes/100 WBC Auto (Bld) on 01-06-2024 Monocytes/100 WBC (Bld) 9.5 % 1.7-12.0 [facility] Neutrophils Auto (Bld) [#/Vo l]on 01-06-2024 Neutrophils (Bld) [#/Vol] 3.1 10 3/uL 1.4-6.5 [facility] Neutrophils/100 WBC Auto (Bl d)on 01-06-2024 Neutrophils/100 WBC (Bld) 53.8 % 43.0-75.0 [facility] No Panel Informationon 01-05 Eosinophils # (Auto) 0.3 10 3/uL 0.0-0.7 [facility] Immature Granulocyte # (Auto) 0.01 10 3/uL 0.00-0.03 [facility] Prostate Specific Antigen Total 1.72 ng/mL <=4.00 [facility] Urine Bacteria TRACE #/HPF NONE SEEN [facility] Urine Occult Blood Negative NEGATIVE [facility] Urine Other Casts NONE SEEN #/LPF NONE SEEN [facility] Urine Other Crystals None Seen #/HPF None Seen [facility] Urine RBC 0-2 #/HPF 0-2 [facility] Urine Squamous Epithelial Cells NONE SEEN #/LPF NONE/RARE [facility] Urine WBC 0-2 #/HPF NONE SEEN [facility] Platelet mean volume Auto (B ld) [Entitic vol]on 01-06-2024 Platelet mean volume (Bld) [Entitic vol] 9.8 fL 9.5-13.5 [facility] Platelets Auto (Bld) [#/Vol] on 01-06-2024 Platelets (Bld) [#/Vol] 187 10 3/uL 150-450 [facility] RBC Auto (Bld) [#/Vol]on RBC (Bld) [#/Vol] 4.75 10 6/uL 4.70-6.10 [facility] Serum or plasma albumin/glob ulin mass ratioon 01-06-2024 Albumin/Globulin [Mass ratio] 1.1 {ratio} [facility] Serum or plasma anion gap de terminationon 01-06-2024 Anion gap [Moles/Vol] 9.6 mmol/L [facility] Serum or plasma total choles terol/high density lipoprotein (HDL) cholesterol [place] 01-06-2024 Cholesterol.total/Carm[place] sterol in HDL [Mass ratio] 2.9 {ratio} [facility] Comment on above: 3.3 - 4.4 LOW RISK4. 4 - 7.1 AVERAGE RISK7.1 - 11.0 MODERATE RISK>11.0 HIGH RISK No Panel InformationOrdered By: Iliana Galo on 09-27-2023 COVID/Influenza Antigen (POC) [facility] Quick Strep (POC) [facility] CT SINUS WOon 08-21-2023 CT SINUS [...] 12-21-2022 BASO # 0.1 103/ul Normal 0.0-0.1 [facility] Comment on above: Performed By: #### C BC #### [facility] [address] [address] [address] Nely Bernal Basophils/100 WBC (Bld) 1.1 % Normal 0.2-2.0 [facility] Comment on above: Performed By: #### C BC #### [facility] [address] [address] [address] Nely Bernal EO # 0.3 103/ul Normal 0.0-0.7 [facility] Comment on above: Performed By: #### C BC #### [facility] [address] [place] [address] Dr. Nely Bernal Eosinophils/100 WBC (Bld) 5.1 % Normal 0.9-7.0 [facility] Comment on above: Performed By: #### C BC #### [facility] [address] [place] [address] Dr. Nely Bernal Erythrocyte distribution width (RBC) [Ratio] 12.1 % Normal 11.0-15.0 [facility] Comment on above: Performed By: #### C BC #### [facility] [address] [place] [address] Dr. Nely Bernal Hematocrit (Bld) [Volume fraction] 45.9 % Normal 42.0-54.0 [facility] Comment on above: Performed By: #### C BC #### [facility] [address] [place] [address] Dr. Nely Bernal Hemoglobin (Bld) [Mass/Vol] 15.7 g/dL Normal 14.0-18.0 [facility] Comment on above: Performed By: #### C BC #### [facility] [address] [place] [address] Dr. Nely Bernal IG # 0.01 10e3/ul Normal 0.00-0.03 [facility] Comment on above: Performed By: #### C BC #### [facility] [address] [place] [address] Dr. Nely Bernal IG % 0.2 % Normal 0.0-0.5 [facility] Comment on above: Performed By: #### C BC #### [facility] [address] [place] [address] Dr. Nely Bernal LYMPH # 1.9 103/ul Normal 1.2-3.8 [facility] Comment on above: Performed By: #### C BC #### [facility] [address] [place] [address] Dr. Nely Bernal Lymphocytes/100 WBC (Bld) 30.6 % Normal 20.5-60.0 [facility] Comment on above: Performed By: #### C BC #### [facility] [address] [place] [address] Dr. Nely Bernal MANUAL DIFF REQ NO Normal [facility] Comment on above: Performed By: #### C BC #### [facility] [address] [place] [address] Dr. Nely Bernal MCH (RBC) [Entitic mass] 30.9 pg Normal 25.9-34.0 [facility] Comment on above: Performed By: #### C BC #### [facility] [address] [place] [address] Dr. Nely Bernal MCHC (RBC) [Mass/Vol] 34.2 g/dL Normal 29.9-35.2 [facility] Comment on above: Performed By: #### C BC #### [facility] [address] [place] [address] Dr. Nely Bernal MCV (RBC) [Entitic vol] 90.4 fL Normal 80.0-94.0 [facility] Comment on above: Performed By: #### C BC #### [facility] [address] [place] [address] Dr. Nely Bernal MONO # 0.6 103/ul Normal 0.3-0.8 [facility] Comment on above: Performed By: #### C BC #### [facility] [address] [place] [address] Dr. Nely Bernal Monocytes/100 WBC (Bld) 8.8 % Normal 1.7-12.0 [facility] Comment on above: Performed By: #### C BC #### [facility] [address] [address] [address] Nely Bernal NEUT # 3.4 103/ul Normal 1.4-6.5 [facility] Comment on above: Performed By: #### C BC #### [facility] [address] [address] [address] Nely Bernal Neutrophils/100 WBC (Bld) 54.2 % Normal 43.0-75.0 [facility] Comment on above: Performed By: #### C BC #### [facility] [address] [address] [address] Nely Bernal Platelet mean volume (Bld) [Entitic vol] 9.7 fL Normal 9.5-13.5 [facility] Comment on above: Performed By: #### C BC #### [facility] [address] [place] [address] Dr. Nely Bernal PLT 194 103/ul Normal 150-450 [facility] Comment on above: Performed By: #### C BC #### [facility] [address] [place] [address] Dr. Nely Bernal RBC 5.08 106/ul Normal 4.70-6.10 [facility] Comment on above: Performed By: #### C BC #### [facility] [address] [place] [address] Dr. Nely Bernal WBC 6.3 103/ul Normal 4.0-11.0 [facility] Comment on above: Performed By: #### C BC #### [facility] [address] [place] [address] Dr. Nely Bernal LIPID PROFILEon 12-21-2022 CHOL-HDL RATIO NORM SEE BELOW Normal [facility] Comment on above: Result Comment: 3.3 - 4.4 LOW RISK 4.4 - 7.1 AVERAGE RISK 7.1 - 11.0 MODERATE RISK >11.0 HIGH RISK Performed By: #### T SH, LIPID, CMP #### [facility] [address] [place] [address] Dr. Nely Bernal Cholesterol [Mass/Vol] 107 mg/dL Normal <=200 [facility] Comment on above: Performed By: #### T SH, LIPID, CMP #### [facility] [address] [address] [address] Nely Bernal Cholesterol in HDL [Mass/Vol] 36 mg/dL Critically low 40-60 [facility] Comment on above: Performed By: #### T SH, LIPID, CMP #### [facility] [address] [address] [address] Nely Bernal Cholesterol in LDL [Mass/Vol] 37.2 mg/dL Normal [facility] Comment on above: Performed By: #### T SH, LIPID, CMP #### [facility] [address] [address] [address] Nely Bernal Cholesterol.total/Carmel sterol in HDL [Mass ratio] 3.0 {ratio} Normal [facility] Comment on above: Performed By: #### T SH, LIPID, CMP #### [facility] [address] [address] [address] Nely Bernal HDL NORMAL > or = 60 mg/dl - LOW CARDIOVASCULAR RISK <40 mg/dl - HIGH CARDIOVASCULAR RISK Normal [facility] Comment on above: Performed By: #### T SH, LIPID, CMP #### [facility] [address] [address] [address] Nely Bernal LDL CALC NORMAL SEE BELOW Normal [facility] Comment on above: Result Comment: <100 mg/dl OPTIMAL 100 - 129 mg/dl NEAR OR ABOVE OPTIMAL 130 - 159 mg/dl BORDERLINE HIGH 160 - 189 mg/dl HIGH >190 mg/dl VERY HIGH Performed By: #### T SH, LIPID, CMP #### [facility] [address] [address] [address] Nely Bernal Triglyceride [Mass/Vol] 169 mg/dL Critically high <=150 [facility] Comment on above: Performed By: #### T SH, LIPID, CMP #### [facility] [address] [address] [address] Nely Bernal VLDL CALC 33.8 mg/dL Normal [facility] Comment on above: Performed By: #### T SH, LIPID, CMP #### [facility] [address] [address] [address] Nely Bernal PROF 14(COMP METB)on 023 Albumin [Mass/Vol] 4.0 g/dL Normal 3.4-5.0 [facility] Comment on above: Performed By: #### L IPID, TSH, CMP #### [facility] [address] [address] [address] Nely Bernal Albumin/Globulin [Mass ratio] 1.0 {ratio} Normal [facility] Comment on above: Performed By: #### L IPID, TSH, CMP #### [facility] [address] [address] [address] Nely Bernal ALP [Catalytic activity/Vol] 67 U/L Normal 46-116 [facility] Comment on above: Performed By: #### L IPID, TSH, CMP #### [facility] [address] [address] [address] Nely Bernal ALT [Catalytic activity/Vol] 49 U/L Normal 16-63 [facility] Comment on above: Performed By: #### L IPID, TSH, CMP #### [facility] [address] [address] [address] Nely Bernal Anion gap [Moles/Vol] 10.6 mmol/L Normal [facility] Comment on above: Performed By: #### L IPID, TSH, CMP #### [facility] [address] [address] [address] Nely Bernal AST [Catalytic activity/Vol] 11 U/L Critically low 15-37 [facility] Comment on above: Performed By: #### L IPID, TSH, CMP #### [facility] [address] [address] [address] Nely Bernal Bilirubin [Mass/Vol] 0.4 mg/dL Normal 0.2-1.0 [facility] Comment on above: Performed By: #### L IPID, TSH, CMP #### [facility] [address] [address] [address] Nely Bernal Calcium [Mass/Vol] 9.1 mg/dL Normal 8.5-10.1 [facility] Comment on above: Performed By: #### L IPID, TSH, CMP #### [facility] [address] [place] [address] Dr. Nely Bernal Chloride [Moles/Vol] 107 mmol/L Normal 98-107 [facility] Comment on above: Performed By: #### L IPID, TSH, CMP #### [facility] [address] [place] [address] Dr. Nely Bernal CO2 [Moles/Vol] 31.4 mmol/L Normal 21.0-32.[address] [facility] Comment on above: Performed By: #### L IPID, TSH, CMP #### [facility] [address] [place] [address] Dr. Nely Bernal Creatinine [Mass/Vol] 1.04 mg/dL Normal 0.70-1.30 [facility] Comment on above: Performed By: #### L IPID, TSH, CMP #### [facility] [address] [place] [address] Dr. Nely Bernal EGFR-AF CYMRO >60 Normal >=[address] [facility] Comment on above: Performed By: #### L IPID, TSH, CMP #### [facility] [address] [place] [address] Dr. Nely Bernal EGFR-NON AF CYMRO >60 Normal >=60 [facility] Comment on above: Performed By: #### L IPID, TSH, CMP #### [facility] [address] [place] [address] Dr. Nely Bernal Globulin (S) [Mass/Vol] 4.0 g/dL Normal [facility] Comment on above: Performed By: #### L IPID, TSH, CMP #### [facility] [address] [place] [address] Dr. Nely Bernal Glucose [Mass/Vol] 107 mg/dL Critically high 74-106 [facility] Comment on above: Performed By: #### L IPID, TSH, CMP #### [facility] [address] [place] [address] Dr. Nely Bernal Potassium [Moles/Vol] 4.0 mmol/L Normal 3.5-5.1 [facility] Comment on above: Performed By: #### L IPID, TSH, CMP #### [facility] [address] [place] [address] Dr. Nely Bernal Protein [Mass/Vol] 8.0 g/dL Normal 6.4-8.2 [facility] Comment on above: Performed By: #### L IPID, TSH, CMP #### [facility] [address] [place] [address] Dr. Nely Bernal Sodium [Moles/Vol] 145 mmol/L Normal 136-145 [facility] Comment on above: Performed By: #### L IPID, TSH, CMP #### [facility] [address] [place] [address] Dr. Nely Bernal Urea nitrogen [Mass/Vol] 17.0 mg/dL Normal 7.0-18.0 [facility] Comment on above: Performed By: #### L IPID, TSH, CMP #### [facility] [address] [place] [address] Dr. Nely Bernal Urea nitrogen/Creatinine [Mass ratio] 16.3 mg/mg Normal [facility] Comment on above: Performed By: #### L IPID, TSH, CMP #### [facility] [address] [place] [address] Dr. Nely Bernal TSHon 12-21-2022 TSH 4.412 uIU/mL Critically high 0.358-3.740 [facility] Comment on above: Performed By: #### T SH, LIPID, CMP #### [facility] [address] [place] [address] Dr. Nely Bernal UA RANDOM W/MICROSCOPICon BACTERIA NONE SEEN Normal NONE SEEN [facility] Comment on above: Performed By: #### U AMIC #### [facility] [address] [place] [address] Dr. Nely Bernal Bilirubin Ql (U) Negative Normal NEGATIVE [facility] Comment on above: Performed By: #### U AMIC #### [facility] [address] [address] [address] Nely Bernal CAST NONE SEEN Normal NONE SEEN [facility] Comment on above: Performed By: #### U AMIC #### [facility] [address] [address] [address] Nely Bernal Clarity (U) CLEAR Normal CLEAR [facility] Comment on above: Performed By: #### U AMIC #### [facility] [address] [address] [address] Nely Bernal Color (U) LT. YELLOW Normal YELLOW [facility] Comment on above: Performed By: #### U AMIC #### [facility] [address] [place] [address] Dr. Nely Bernal Crystals LM Nom (Urine sed) NONE SEEN Normal NONE SEEN [facility] Comment on above: Performed By: #### U AMIC #### [facility] [address] [place] [address] Dr. Nely Bernal Epithelial cells LM Ql (Urine sed) NONE SEEN Normal NONE SEEN /RARE [facility] Comment on above: Performed By: #### U AMIC #### [facility] [address] [place] [address] Dr. Nely Bernal Glucose Ql (U) Negative Normal NEGATIVE [facility] Comment on above: Performed By: #### U AMIC #### [facility] [address] [place] [address] Dr. Nely Bernal Hemoglobin Ql (U) Negative Normal NEGATIVE The [facility] Comment on above: Performed By: #### U AMIC #### [facility] [address] [place] [address] Dr. Nely Bernal Ketones Ql (U) Negative Normal NEGATIVE [facility] Comment on above: Performed By: #### U AMIC #### [facility] [address] [place] [address] Dr. Nely Bernal LEUKOCYTES Negative Normal NEGATIVE [facility] Comment on above: Performed By: #### U AMIC #### [facility] [address] [place] [address] Dr. Nely Bernal MUCOUS NONE SEEN Normal NONE SEEN [facility] Comment on above: Performed By: #### U AMIC #### [facility] [address] [address] [address] Nely Bernal Nitrite Ql (U) Negative Normal NEGATIVE [facility] Comment on above: Performed By: #### U AMIC #### [facility] [address] [address] [address] Nely Bernal pH (U) 6.5 [pH] Normal 5-9 [facility] Comment on above: Performed By: #### U AMIC #### [facility] [address] [address] [address] Nely Bernal RBC 0-2 Normal 0-2 [facility] Comment on above: Performed By: #### U AMIC #### [facility] [address] [place] [address] Dr. Nely Bernal SPEC GRAVITY 1.010 Normal 1.005-<=1.025 [facility] Comment on above: Performed By: #### U AMIC #### [facility] [address] [place] [address] Dr. Nely Bernal UA PROTEIN Negative Normal NEGATIVE/ TRACE [facility] Comment on above: Performed By: #### U AMIC #### [facility] [address] [place] [address] Dr. Nely Bernal Urobilinogen Qn (U) 0.2 {Wendy'U}/dL Normal 0.2 - 1. 0 [facility] Comment on above: Performed By: #### U AMIC #### [facility] [address] [place] [address] Dr. Nely Bernla WBC NONE SEEN Normal NONE SEEN [facility] Comment on above: Performed By: #### U AMIC #### [facility] [address] [place] [address] Dr. Nely Bernal CBC AUTO DIFFon 01-08-2022 BASO # 0.1 103/ul Normal 0.0-0.1 [facility] Comment on above: Performed By: #### C BC #### [facility] [address] [address] [address] Nely Bernal Basophils/100 WBC (Bld) 1.0 % Normal 0.2-2.0 [facility] Comment on above: Performed By: #### C BC #### [facility] [address] [place] [address] Dr. Nely Bernal EO # 0.2 103/ul Normal 0.0-0.7 [facility] Comment on above: Performed By: #### C BC #### [facility] [address] [place] [address] Dr. Nely Bernal Eosinophils/100 WBC (Bld) 3.7 % Normal 0.9-7.0 [facility] Comment on above: Performed By: #### C BC #### [facility] [address] [place] [address] Dr. Nely Bernal Erythrocyte distribution width (RBC) [Ratio] 12.1 % Normal 11.0-15.0 [facility] Comment on above: Performed By: #### C BC #### [facility] [address] [place] [address] Dr. Nely Bernal Hematocrit (Bld) [Volume fraction] 44.7 % Normal 42.0-54.0 [facility] Comment on above: Performed By: #### C BC #### [facility] [address] [place] [address] Dr. Nely Bernal Hemoglobin (Bld) [Mass/Vol] 15.6 g/dL Normal 14.0-18.0 [facility] Comment on above: Performed By: #### C BC #### [facility] [address] [place] [address] Dr. Nely Bernal IG # 0.01 10e3/ul Normal 0.00-0.03 [facility] Comment on above: Performed By: #### C BC #### [facility] [address] [place] [address] Dr. Nely Bernal IG % 0.2 % Normal 0.0-0.5 [facility] Comment on above: Performed By: #### C BC #### [facility] [address] [place] [address] Dr. Nely Bernal LYMPH # 1.8 103/ul Normal 1.2-3.8 [facility] Comment on above: Performed By: #### C BC #### [facility] [address] [place] [address] Dr. Nely Bernal Lymphocytes/100 WBC (Bld) 27.9 % Normal 20.5-60.0 [facility] Comment on above: Performed By: #### C BC #### [facility] [address] [place] [address] Dr. Nely Bernal MANUAL DIFF REQ NO Normal [facility] Comment on above: Performed By: #### C BC #### [facility] [address] [place] [address] Dr. Nely Bernal MCH (RBC) [Entitic mass] 31.3 pg Normal 25.9-34.0 [facility] Comment on above: Performed By: #### C BC #### [facility] [address] [place] [address] Dr. Nely Bernal MCHC (RBC) [Mass/Vol] 34.9 g/dL Normal 29.9-35.2 [facility] Comment on above: Performed By: #### C BC #### [facility] [address] [place] [address] Dr. Nely Bernal MCV (RBC) [Entitic vol] 89.6 fL Normal 80.0-94.0 [facility] Comment on above: Performed By: #### C BC #### [facility] [address] [place] [address] Dr. Nely Bernal MONO # 0.5 103/ul Normal 0.3-0.8 [facility] Comment on above: Performed By: #### C BC #### [facility] [address] [place] [address] Dr. Nely Bernal Monocytes/100 WBC (Bld) 8.6 % Normal 1.7-12.0 [facility] Comment on above: Performed By: #### C BC #### [facility] [address] [place] [address] Dr. Nely Bernal NEUT # 3.7 103/ul Normal 1.4-6.5 [facility] Comment on above: Performed By: #### C BC #### [facility] [address] [place] [address] Dr. Nely Bernal Neutrophils/100 WBC (Bld) 58.6 % Normal 43.0-75.0 [facility] Comment on above: Performed By: #### C BC #### [facility] [address] [place] [address] Dr. Nely Bernal Platelet mean volume (Bld) [Entitic vol] 9.8 fL Normal 9.5-13.5 [facility] Comment on above: Performed By: #### C BC #### [facility] [address] [place] [address] Dr. Nely Bernal PLT 205 103/ul Normal 150-450 [facility] Comment on above: Performed By: #### C BC #### [facility] [address] [place] [address] Dr. Nely Bernal RBC 4.99 106/ul Normal 4.70-6.10 [facility] Comment on above: Performed By: #### C BC #### [facility] [address] [place] [address] Dr. Nely Bernal WBC 6.3 103/ul Normal 4.0-11.0 [facility] Comment on above: Performed By: #### C BC #### [facility] [address] [place] [address] Dr. Nely Bernal LIPID PROFILEon 01-08-2022 CHOL-HDL RATIO NORM SEE BELOW Normal [facility] Comment on above: Result Comment: 3.3 - 4.4 LOW RISK 4.4 - 7.1 AVERAGE RISK 7.1 - 11.0 MODERATE RISK >11.0 HIGH RISK Performed By: #### T SH, LIPID, CMP #### [facility] [address] [place] [address] Dr. Nely Bernal Cholesterol [Mass/Vol] 111 mg/dL Normal <=200 [facility] Comment on above: Performed By: #### T SH, LIPID, CMP #### [facility] [address] [address] [address] Nely Bernal Cholesterol in HDL [Mass/Vol] 38 mg/dL Critically low 40-60 [facility] Comment on above: Performed By: #### T SH, LIPID, CMP #### [facility] [address] [address] [address] Nely Bernal Cholesterol in LDL [Mass/Vol] 43.8 mg/dL Normal [facility] Comment on above: Performed By: #### T SH, LIPID, CMP #### [facility] [address] [address] [address] Nely Bernal Cholesterol.total/Carmel sterol in HDL [Mass ratio] 2.9 {ratio} Normal [facility] Comment on above: Performed By: #### T SH, LIPID, CMP #### [facility] [address] [place] [address] Dr. Nely Bernal HDL NORMAL > or = 60 mg/dl - LOW CARDIOVASCULAR RISK <40 mg/dl - HIGH CARDIOVASCULAR RISK Normal [facility] Comment on above: Performed By: #### T SH, LIPID, CMP #### [facility] [address] [place] [address] Dr. Nely Bernal LDL CALC NORMAL SEE BELOW Normal [facility] Comment on above: Result Comment: <100 mg/dl OPTIMAL 100 - 129 mg/dl NEAR OR ABOVE OPTIMAL 130 - 159 mg/dl BORDERLINE HIGH 160 - 189 mg/dl HIGH >190 mg/dl VERY HIGH Performed By: #### T SH, LIPID, CMP #### [facility] [address] [place] [address] Dr. Nely Bernal Triglyceride [Mass/Vol] 146 mg/dL Normal <=150 [facility] Comment on above: Performed By: #### T SH, LIPID, CMP #### [facility] [address] [place] [address] Dr. Nely Bernal VLDL CALC 29.2 mg/dL Normal [facility] Comment on above: Performed By: #### T SH, LIPID, CMP #### [facility] [address] [place] [address] Dr. Nely Bernal PROF 14(COMP METB)on 022 Albumin [Mass/Vol] 3.9 g/dL Normal 3.4-5.0 [facility] Comment on above: Performed By: #### T SH, LIPID, CMP #### [facility] [address] [address] [address] Nely Bernal Albumin/Globulin [Mass ratio] 1.2 {ratio} Normal [facility] Comment on above: Performed By: #### T JOSE ANGEL, LIPID, CMP #### [facility] [address] [address] [address] Nely Bernal ALP [Catalytic activity/Vol] 56 U/L Normal 46-116 [facility] Comment on above: Performed By: #### T JOSE ANGEL, LIPID, CMP #### [facility] [address] [address] [address] Nely Bernal ALT [Catalytic activity/Vol] 45 U/L Normal 16-63 [facility] Comment on above: Performed By: #### T JOSE ANGEL, LIPID, CMP #### [facility] [address] [address] [address] Nely Bernal Anion gap [Moles/Vol] 14.5 mmol/L Normal [facility] Comment on above: Performed By: #### T JOSE ANGEL, LIPID, CMP #### [facility] [address] [address] [address] Nely Bernal AST [Catalytic activity/Vol] 10 U/L Critically low 15-37 [facility] Comment on above: Performed By: #### T JOSE ANGEL, LIPID, CMP #### [facility] [address] [address] [address] Nely Bernal Bilirubin [Mass/Vol] 0.9 mg/dL Normal 0.2-1.0 [facility] Comment on above: Performed By: #### T JOSE ANGEL, LIPID, CMP #### [facility] [address] [address] [address] Nely Bernal Calcium [Mass/Vol] 8.6 mg/dL Normal 8.5-10.1 [facility] Comment on above: Performed By: #### T JOSE ANGEL, LIPID, CMP #### [facility] [address] [address] [address] Nely Bernal Chloride [Moles/Vol] 105 mmol/L Normal 98-107 [facility] Comment on above: Performed By: #### T SH, LIPID, CMP #### [facility] [address] [address] [address] Nely Bernal CO2 [Moles/Vol] 25.2 mmol/L Normal 21.0-32.[address] [facility] Comment on above: Performed By: #### T SH, LIPID, CMP #### [facility] [address] [place] [address] Dr. Nely Bernal Creatinine [Mass/Vol] 0.87 mg/dL Normal 0.70-1.30 [facility] Comment on above: Performed By: #### T SH, LIPID, CMP #### [facility] [address] [place] [address] Dr. Nely Bernal EGFR-AF CYMRO >60 Normal >=[address] [facility] Comment on above: Performed By: #### T SH, LIPID, CMP #### [facility] [address] [place] [address] Dr. Nely Bernal EGFR-NON AF CYMRO >60 Normal >=60 [facility] Comment on above: Performed By: #### T SH, LIPID, CMP #### [facility] [address] [place] [address] Dr. Nely Bernal Globulin (S) [Mass/Vol] 3.3 g/dL Normal [facility] Comment on above: Performed By: #### T SH, LIPID, CMP #### [facility] [address] [place] [address] Dr. Nely Bernal Glucose [Mass/Vol] 97 mg/dL Normal 74-106 [facility] Comment on above: Performed By: #### T SH, LIPID, CMP #### [facility] [address] [place] [address] Dr. Nely Bernal Potassium [Moles/Vol] 3.7 mmol/L Normal 3.5-5.1 [facility] Comment on above: Performed By: #### T SH, LIPID, CMP #### [facility] [address] [place] [address] Dr. Nely Bernal Protein [Mass/Vol] 7.2 g/dL Normal 6.4-8.2 [facility] Comment on above: Performed By: #### T SH, LIPID, CMP #### [facility] [address] [place] [address] Dr. Nely Bernal Sodium [Moles/Vol] 141 mmol/L Normal 136-145 [facility] Comment on above: Performed By: #### T SH, LIPID, CMP #### [facility] [address] [place] [address] Dr. Nely Bernal Urea nitrogen [Mass/Vol] 13.0 mg/dL Normal 7.0-18.0 [facility] Comment on above: Performed By: #### T SH, LIPID, CMP #### [facility] [address] [place] [address] Dr. Nely Bernal Urea nitrogen/Creatinine [Mass ratio] 14.9 mg/mg Normal [facility] Comment on above: Performed By: #### T SH, LIPID, CMP #### [facility] [address] [place] [address] Dr. Nely Bernal TSHon 01-08-2022 TSH 2.962 uIU/mL Normal 0.358-3.740 [facility] Comment on above: Performed By: #### T SH, LIPID, CMP #### [facility] [address] [place] [address] Dr. Nely Bernal TSH RANGE SEE BELOW Normal [facility] Comment on above: Result Comment: <0.3 4 UIU/ml HYPERTHYROID 0.34-5.60 UIU/ml EUTHYROID >5.60 UIU/ml HYPOTHYROID Performed By: #### T SH, LIPID, CMP #### [facility] [address] [place] [address] Dr. Nely Bernal UA RANDOMon 01-08-2022 Bilirubin Ql (U) Negative Normal NEGATIVE [facility] Comment on above: Performed By: #### U A #### [facility] [address] [place] [address] Dr. Nely Bernal Clarity (U) CLEAR Normal CLEAR [facility] Comment on above: Performed By: #### U A #### [facility] [address] [place] [address] Dr. Nely Bernal Color (U) YELLOW Normal YELLOW [facility] Comment on above: Performed By: #### U A #### [facility] [address] [place] [address] Dr. Nely Bernal Glucose Ql (U) Negative Normal NEGATIVE [facility] Comment on above: Performed By: #### U A #### [facility] [address] [place] [address] Dr. Nely Bernal Hemoglobin Ql (U) Negative Normal NEGATIVE [facility] Comment on above: Performed By: #### U A #### [facility] [address] [place] [address] Dr. Nely Bernal Ketones Ql (U) Negative Normal NEGATIVE [facility] Comment on above: Performed By: #### U A #### [facility] [address] [place] [address] Dr. Nely Bernal LEUKOCYTES Negative Normal NEGATIVE [facility] Comment on above: Performed By: #### U A #### [facility] [address] [place] [address] Dr. Nely Bernal Nitrite Ql (U) Negative Normal NEGATIVE [facility] Comment on above: Performed By: #### U A #### [facility] [address] [place] [address] Dr. Nely Bernal pH (U) 6.0 [pH] Normal 5-9 [facility] Comment on above: Performed By: #### U A #### [facility] [address] [place] [address] Dr. Nely Bernal SPEC GRAVITY 1.020 Normal 1.005-<=1.025 [facility] Comment on above: Performed By: #### U A #### [facility] [address] [place] [address] Dr. Nely Bernal UA PROTEIN Negative Normal NEGATIVE/ TRACE [facility] Comment on above: Performed By: #### U A #### [facility] [address] [place], [place] [address] Dr. Nely Bernal Urobilinogen Qn (U) 0.2 {Wendy'U}/dL Normal 0.2 - 1. 0 [facility] Comment on above: Performed By: #### U A #### [facility] [address] [address] [address] Nely Bernal Vital Signs Date Time Vital Sign Value Performing Clinician Facility 01-08-2024 09:40-0400 Body height 187.96 cm [facility] 01-08-2024 09:40-0400 Body mass index (BMI) [Ratio] 26.6 kg/m2 [facility] 01-08-2024 09:40-0400 Body temperature 98.1 [degF] [facility] 01-08-2024 09:40-0400 Body weight 94.03 kg [facility] 01-08-2024 09:40-0400 Diastolic blood pressure 82 mm[Hg] [facility] 01-08-2024 09:40-0400 Heart rate 80 /min [facility] 01-08-2024 09:40-0400 SaO2% (BldA) [Mass fraction] 98 % [facility] 01-08-2024 09:40-0400 Systolic blood pressure 128 mm[Hg] [facility] 09-27-2023 09:25-0500 Body height 187.96 cm [facility] 09-27-2023 09:25-0500 Body mass index (BMI) [Ratio] 25.9 kg/m2 [facility] 09-27-2023 09:25-0500 Body temperature 97.8 [degF] [facility] 09-27-2023 09:25-0500 Body weight 91.62 kg [facility] 09-27-2023 09:25-0500 Heart rate 82 /min [facility] 09-27-2023 09:25-0500 Respiratory rate 16 /min [facility] 09-27-2023 09:25-0500 SaO2% (BldA) [Mass fraction] 98 % [facility] 12-24-2021 14:20-0400 Body height 187.96 cm Adela Fulton Other [facility] Other 12-24-2021 14:20-0400 Body mass index (BMI) [Ratio] 26.45 kg/m2 Adela Fulton Other [facility] Other 12-24-2021 14:20-0400 Body temperature 97.9 [degF] Adela Fulton Other [facility] Other 12-24-2021 14:20-0400 Body weight 93.44 kg Adela Fulton Other [facility] Other 12-24-2021 14:20-0400 Diastolic blood pressure 84 mm[Hg] Adela Fulton Other [employer] Other 12-24-2021 14:20-0400 Respiratory rate 18 /min Adela Fulton Other [employer] Other 12-24-2021 14:20-0400 SaO2% (BldA) [Mass fraction] 97 % Adela Fulton Other [employer] Other 12-24-2021 14:20-0400 Systolic blood pressure 134 mm[Hg] Adela Fulton Other [employer] Other Encounters Encounter Date Encounter Type Care Provider Facility Start: 03-22-2024 End: 03-22-2024 ambulatory ROSA ELENA KIMBALL Not Available Start: 01-08-2024 Patient encounter status [facility] Start: 01-08-2024 End: 01-08-2024 ambulatory [facility] Work Phone: Start: 01-08-2024 End: 01-08-2024 Encounter for general adult medical examination without abnormal findings [facility] Start: 01-08-2024 End: 01-08-2024 Patient encounter procedure [facility] Physician [facility] Work Phone: Start: 01-06-2024 Non-patient / Non-visit [facility] Physician [facility] [employer] Work Phone: Start: 09-27-2023 End: 09-27-2023 ambulatory [facility] Work Phone: Start: 09-27-2023 End: 09-27-2023 Patient encounter procedure [facility] Physician [facility] [place] Work Phone: Start: 09-15-2023 End: 09-15-2023 ambulatory MELANIE PATEL Not Available Start: 08-27-2023 End: 08-27-2023 ambulatory Adela Fulton Other [employer] Other Start: 08-27-2023 Telephone encounter Adela Fulton [facility] Start: 08-21-2023 End: 08-21-2023 ambulatory ADELA FULTON Not Available Start: 08-05-2023 (Televisit) Televisit Adela Fulton [facility] Start: 08-05-2023 End: 08-05-2023 ambulatory Adela Fulton Other [employer] Other Start: 08-05-2023 End: 08-05-2023 Patient encounter procedure [facility] Physician [facility] Work Phone: Start: 07-22-2023 End: 07-22-2023 ambulatory Adela Fulton Other [employer] Other Start: 07-22-2023 Telephone encounter Adela Fulton [facility] Start: 07-21-2023 End: 07-21-2023 ambulatory Adela Fulton Other [employer] Other Start: 07-21-2023 Telephone encounter Adela Fulton [facility] Start: 03-19-2023 End: 03-19-2023 ambulatory Adela Fulton Other [employer] Other Start: 03-19-2023 Telephone encounter Adela Fulton [facility] Start: 12-21-2022 End: 12-22-[address] ADELA FULTON Facility:[facility] Start: 11-20-2022 End: 11-20-2022 ambulatory Adela Fulton Other [employer] Other Start: 11-20-2022 Encounter for genera l adult medical examination without abnormal findings Adela Fulton [facility] Start: 11-20-2022 Telephone encounter Adela Fulton [facility] Start: 04-03-2022 End: 04-03-2022 ambulatory Adela Fulton Other [employer] Other Start: 04-03-2022 Telephone encounter Adela Fulton [facility] Start: 01-14-2022 Encounter for genera l adult medical examination without abnormal findings DR ADELA FULTON [facility] Start: 01-14-2022 End: 01-14-2022 ambulatory Adela Fulton Other [employer] Other Start: 01-14-2022 Telephone encounter Adela Fulton [facility] Start: 01-08-2022 End: 01-09-[address] ADELA FULTON Facility:[facility] Start: 01-08-2022 End: 01-09-2022 Encounter for general adult medical examination without abnormal findings DR ADELA FULTON Facility:[facility] Start: 12-24-2021 End: 12-24-2021 ambulatory Adela Fulton Other [employer] Other Start: 12-24-2021 Encounter for genera l adult medical examination without abnormal findings Adela Fulton [facility] Start: 12-24-2021 Periodic preventive med est patient 40-64yrs Adela Fulton [facility] Start: 12-10-2021 End: 12-10-2021 ambulatory Adela Fulton Other [employer] Other Start: 12-10-2021 Telephone encounter Adela Fulton [facility] Procedures Date Procedure Procedure Detail Performing Clinician Start: 09-27-2023 COVID/Influenza Antigen (POC) Start: 09-27-2023 Quick Strep (POC) Start: 12-21-[address] ADELA FULTON Comment on above: Performed By: #### P SAD #### [facility] [address] [address] [address] Nely Bernal Start: 01-08-[address] ADELA FULTON Comment on above: Performed By: #### P SAD #### [facility] [address] [address] [address] Nely Bernal Plan of Treatment Date Care Activity Detail Author Comprehensive metabo lic 2000 panel - Serum or Plasma [facility] Patient Education Low back pain in adults [facility] Work Phone: [facility] Immunizations Immunization Date Immunization Notes Care Provider Brandie vargas 05-21-2022 influenza, seasonal, injectable Adela Fulton Other [facility] 06-25-2021 COVID-19 Vaccine Mod rubén - Documentation Purposes Only Adela Fulton Other [facility] 11-03-2020 COVID-19 Vaccine Mod rubén - Documentation Purposes Only Adela Fulton Other [facility] 10-04-2020 COVID-19 Vaccine Mod rubén - Documentation Purposes Only Adela Fulton Other [facility] Payers Date Payer Category Payer Unknown [id number] .[id number] 1970 Unknown [id number] 1968 Unknown [id number] .[id number] [id number] 1968 Unknown [id number] 1968 Unknown [id number] 1959 Unknown [id number] Self-pay Self Pay [id number] Unknown [facility] [id number] 47 [id number] Social History Date Type Detail Facility Unknown if ever smoked [employer] Other Sex Assigned At Sex Assigned At Bir th [employer] Other Start: 09-27-2023 End: 01-08-2024 Tobacco smoking status NHIS Never smoked tobacco (finding) [facility] Start: 1970 Sex Assigned At Male F [facility] Evaluation note 08-05-2023 Note Date & Type [...] like to have it done through the [facility]. Jul, Other 1:20 PM - 1:35 PM He voices that he had trouble swallowing a gelcapsule two days ago (08-03-23) which was unusual for him, but today he is fine and is not having any difficulty swallowing. Normally he can swallow a cheesburger or steak, something large without any trouble. [employer] Other Evaluation note 07-21-2023 Note Date & Type Note Facility 07-21-2023 Evaluation note Encounter Date Diagnosis Assessment Notes Jul, Pharyngitis (ICD-10 - J02.9) [employer] Other Evaluation note 11-20-2022 Note Date & Type Note Facility 11-20-2022 Evaluation note Encounter Date Diagnosis Assessment Notes Nov, Wellness examination (ICD-10 - Z00.00) [employer] Other Evaluation note 04-03-2022 Note Date & Type Note Facility 04-03-2022 Evaluation note Encounter Date Diagnosis Assessment Notes Mar, Elevated blood pressure (ICD-10 - R03.0) [employer] Other Evaluation note 12-24-2021 Note Date & [...] issue with bowel or bladder. 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 [employer] Other History general Narrative - Reported 01-09-2011 [...] 5-7 years 12/20/2020 Hospitalization History see above [employer] Other History general Narrative - Reported 01-09-2011 [...] garcia- tubular adenoma/ repeat in 3-5 years ([id number]) 12/20/2020 Surgical History root canal 11/2022 Hospitalization History see above [facility] Other Evaluation note Note Date & Type Note Facility Evaluation note No Information [facility] [employer] Other Evaluation note Note Date & Type Note Facility Evaluation note No assessment information availa ble [facility] Work Phone: Evaluation note Note Date & Type Note Facility Evaluation note Diagnosis Onset Date Abnormal TSH acute Elevated blood pressure reading acute Elevated PSA acute Hyperglycemia acute Hyperlipidemia acute Hypocalcemia acute Lumbar pain acute Wellness examination acute [facility] Work Phone: Summary Purpose Family History No Family History Records Found Relationship Condition Age at Onset Recorded Date/T travis father Malignant neoplasm Unknown History of malignant neoplasm of prostate Unknown Diabetes mellitus Unknown Hypertension Unknown grandparent Heart disease Unknown Myocardial infarction Unknown Unknown grandparent Unknown History of stroke Unknown grandparent History of stroke Unknown Not Specified Hypertension Unknown Advance Directives No Advanced Directives Records Found Advance Directive Response Recorded Date/ Time Advance Directives No September 9:20am Advance Directive Response Recorded Date/ Time Advance Directives No January 07 9:22am Reason for Referral Reason appt consult to [facility] for deviated nasal septum lt Diagnosis 1 Deviated nasal septu m (J34.2) Referral Organization [facility] Referring Provider First Name Adela Referring Provider Last Name Donaldo Referring Provider Specialty Family Prac lita Referred Organization [facility] Referred Provider Melanie Patel Referred Address ,[place], [place],[address] Referred Provider Specialty Ear, Nose an d Throat Referral Priority Routine General Notes Мария Rucker 09/09/2023 02:56:42 PM > referral printed and hard faxed to Dr Patel with last visit note, CT report, insurance card and demographics. pt understands he will be contacted to schedule this appt. Chief Complaint and Reason for Visit Chief Complaint Sore Throat/Cough/Si nus Pressure/Drainag Sore throat Chief Complaint wellness/review labs Reason for Visit Abnormal TSH Elevated blood pressure reading Elevated PSA Hyperglycemia Hyperlipidemia Hypocalcemia Lumbar pain Wellness examination Additional Source Comments REASON FOR VISIT (unrecogniz ed section and content) [facility] resultsAl[facility] orderClinicalClinicalClinicalsore throat/cough/sinus pressure/drainageClinical (unrecognized sect ion and content) No Status Records FoundNo Status Records Found INFORMATION SOURCE (unrecogn ized section and content) DATE CREATED AUTHOR 12/22/2022 [facility] DATE CREATED AUTHOR AUTHOR'S ORGANIZ ATION 03/23/2024 [facility] Care Teams (unrecognized sec tion and content) Team Status: Active Member Role Status Dates Adela Fulton DO Primary Care Provider Active Team Status: Active Member Role Status Dates Adela Fulton DO Primary Care Provide r, Attending Provider Active Start: January 06, 2024 Team Status: Inactive Member Role Status Mariza Fulton DO Primary Care Provide r, Attending Provider Active Start: January 08, 2024 End: January 08, 2024 Team Status: Inactive Member Role Status Mariza Fulton DO Attending Provider Active Star t: August 05, 2023 End: August 05, 2023 Team Status: Inactive Member Role Status Mariza Fulton DO Primary Care Provider Active S [...] BE BASED ON THE PRIMARY CLINICAL RECORDS. [employer] provides no warranty or guarantee of the accuracy or completeness of information in this document.
[2024-12-23 07:16] LABS: Bilirubin Urine NEGATIVE (NEGATIVE); Blood Urine NEGATIVE (NEGATIVE); Clarity Urine CLEAR (CLEAR); Color Urine LT. YELLOW (YELLOW); Glucose Urine UA NEGATIVE (NEGATIVE); Ketones Urine NEGATIVE (NEGATIVE); Leukocyte Esterase Urine NEGATIVE (NEGATIVE); Nitrite Urine NEGATIVE (NEGATIVE); Protein Urine NEGATIVE (NEG/TRACE); Urobilinogen Urine 0.2 EU/dL (0.2-1.0)
[2024-12-23 07:21] LABS: Basophils Absolute Auto 0.1 10^3/uL (0.0-0.1); Basophils Percent Auto 0.7 % (0.2-2.0); Eosinophils Absolute Auto 0.3 10^3/uL (0.0-0.7); Eosinophils Percent Auto 3.8 % (0.9-7.0); Hematocrit 45.7 % (42.0-54.0); Hemoglobin 16.2 g/dL (14.0-18.0); Immature Granulocytes Abs Auto 0.01 10^3/uL (0.00-0.03); Immature Granulocytes Pct Auto 0.1 % (0.0-0.5); Lymphocytes Absolute Auto 2.2 10^3/uL (1.2-3.8); Lymphocytes Percent Auto 30.6 % (20.5-60.0); Mean Corpuscular HGB Conc 35.4 g/dL (29.9-35.2); Mean Corpuscular Hemoglobin 31.8 pg (25.9-34.0); Mean Corpuscular Volume 89.8 fL (80.0-94.0); Mean Platelet Volume 9.9 fL (9.5-13.5); Monocytes Absolute Auto 0.7 10^3/uL (0.3-0.8); Monocytes Percent Auto 9.2 % (1.7-12.0); Neutrophils Absolute Auto 3.9 10^3/uL (1.4-6.5); Neutrophils Percent Auto 55.6 % (43.0-75.0); Platelet Count 205 10^3/uL (150-450); Red Blood Count 5.09 10^6/uL (4.70-6.10); Red Cell Distribution Width 11.8 % (11.0-15.0)
[2024-12-23 07:34] LABS: Alanine Aminotransferase 49 U/L (16-63); Albumin Globulin Ratio 1.2; Alkaline Phosphatase 65 U/L (46-116); Anion Gap 10.9; Aspartate Amino Transferase 12 U/L (15-37); BUN Creatinine Ratio 15.2; Calcium 8.9 mg/dL (8.5-10.1); Chloride 105 mmol/L (98-107); Chol HDL Ratio 2.4; Cholesterol 106 mg/dL (<=200); Estimated GFR (African America >60 (>=60 mL/min/1.73m^2); Estimated GFR (Non-African Ame >60 (>=60 mL/min/1.73m^2); Globulin 3.3 g/dL; Glucose 98 mg/dL (74-106); HDL Cholesterol 45 mg/dL (40-60); LDL Cholesterol Calculated 37.4 mg/dL; Potassium 3.9 mmol/L (3.5-5.1); Sodium 141 mmol/L (136-145); Thyroid Stimulating Hormone 3.494 uIU/mL (0.358-3.740); Total Protein 7.3 g/dL (6.4-8.2); Triglycerides 118 mg/dL (<=150); VLDL CHOLESTEROL 23.6 mg/dL
[2024-12-23 08:35] LABS: WBC Urine NONE SEEN #/HPF (NONE SEEN)
[2024-12-23 08:36] LABS: Bacteria Urine TRACE #/HPF (NONE SEEN); Cast Seen? NONE SEEN #/LPF (NONE SEEN); Crystals Seen? None Seen #/HPF (None Seen); Mucus Urine NONE SEEN (NONE SEEN); RBC Urine NONE SEEN #/HPF (0-2); Squamous Epithelial Cell Urine NONE SEEN #/LPF (NONE/RARE)
[2024-12-24 04:08] LABS: PSA, Free 0.27 ng/mL; Prostate Specific Ag 0.8 ng/mL (0.0-4.0)
== END 2024-12-23 06:55 | disposition home or self-care (01) ==
LOC: LAB 06:55
PROVIDERS: PCP Family Medicine; Visit Provider Family Medicine
DX: Z00.00 Encounter for general adult medical examination without abnormal findings (principal); R97.20 Elevated prostate specific antigen [PSA]
CPT/HCPCS: 36415; 80053; 80061; 81001; 84153; 84154; 84443; 85025